=== PATIENT | male | born 1980 | race Caucasian/White ===

== ENCOUNTER → 2020-07-17 | Outpatient (CLI) | payer OTHER ==
[~2020-07-17] MED LIST: ALBUTEROL INH; ALBUTEROL NEB; AZITHROMYCIN 2250 MG; CHLORDIAZEPOXIDE5 M2 PO; LEXAPRO 10 MG T10 MG; PEPCID AC20 M1; PREDNISONE 10 M10 M1 PO; TESSALON200 MG PO; ULTRAM 50MG TAB50 MG PO; VIBRAMYCIN 100100 MG PO; VICODIN 5-5001 EACH PO
== END ==
LOC: CAT 07:45
PROVIDERS: ATTEND Family Medicine
DX: Z13.6 Encounter for screening for cardiovascular disorders (principal); I25.10 Atherosclerotic heart disease of native coronary artery without angina pectoris; E78.00 Pure hypercholesterolemia, unspecified

== ENCOUNTER → 2020-07-17 | Outpatient (CLI) | payer OTHER | LOC: LAB 07:09 → COVVAC 07:10 | DX: Z23 Encounter for immunization (principal) ==